=== PATIENT | male | born 1975 | race Caucasian/White ===

== ENCOUNTER 2016-09-25 07:36 | Emergency (ER) | payer OTHER ==
[2016-09-25 07:41] VITALS: BMI 20.1
--- NOTE | 2016-09-25 08:07 | DR.GENAD ---
HPI - PCP Primary Care Physician: NFD - Complaint/Symptoms Chief Complaint Doctors Comments: Headache Chief Complaint:: HEAD ABOUT TO EXPLODE ANCD BP HIGH WHEN CHECKED AT WORK Self Treatment fo Chief Complaint: NONE - Nurses notes reviewed Nurses Notes Review: Yes - Source History Provided: Patient - Mode of Arrival Mode of Arrival: Ambulatory - Timing Onset of Chief Complaint: 09/24/16 Came on: Gradually - Duration Duration: Intermittent How lon Duration: Weeks - Severity Severity: Severe - Associated Signs and Symptoms Associated Signs and Symptoms: nocturia, dizziness, fatigue , insomnia PMH - PMH Past Medical History: Yes Past Medical History: Anxiety Past Surgical History: No - Family History History of Family Medical Conditions: Yes Family Medical History: Diabetes Mellitus, Coronary Artery Disease, Hypertension - Social History Does patient currently use any type of tobacco product: Yes Have you used tobacco products in the last 12 months: Yes Type of Tobacco Use: Cigarettes How many years tobacco product used: 20 Does any household member use tobacco: No Alcohol Use: Occasionally Do you use any recreational Drugs:: No Lives With: Spouse, Family Lives Where: Home - infectious screening In the last 2 months have you had wt loss of >10#?: NO Have you had fever, night sweats or hemotysis?: No Have you traveled outside the country in the last 6 months?: No Isolation: Standard PE - Vital Signs Vitals: Temperature 98 F Pulse Rate [Left Brachial] 80 Pulse Rate 88 Respiratory Rate 18 Blood Pressure [Right Arm] 127/77 Blood Pressure 189/100 O2 Sat by Pulse Oximetry 100 - General Limitations: No Limitations General Appearance: Alert, In No Apparent Distress - Head Head Exam: Normal Inspection, Atraumatic - Eyes Eye exam: Normal Appearance, PERRL, EOMI - ENT ENT Exam: Normal Exam, Normal Oropharynx, Mucous Membranes Moist External Ear Exam: Normal External Inspection Nose Exam: Normal Nose Exam Mouth Exam: Normal Inspection Throat Exam: Normal Inspection - Neck Neck Exam: Normal Inspection - Chest Chest Inspection: Normal Inspection, Symmetric Chest Wall Rise - Respiratory Respiratory Exam: Normal Lung Sounds Bilat - Cardiovascular Cardiovascular Exam: Regular Rate, Normal Rhythm, Normal Heart Sounds - Abdominal Exam Abdominal Exam: Normal Inspection, Normal Bowel Sounds, Soft - Extremities Extremities Exam: Normal Inspection, Full ROM - Back Back Exam: Normal Inspection, Full ROM - Neurologic Neurological Exam: Alert, Oriented X3, CN II-XII Intact - Psychiatric Psychiatric Exam: Normal Affect, Normal Mood - Skin Skin Exam: Warm, Dry, Intact, Normal Color Course - Reevaluation 1st: Improved (Headache is 4-5 now and was 9/10 upon presentation.) ROR - Labs Reviewed Result Diagrams: 09/25/16 08:24 09/25/16 08:24 Laboratory: WBC 6.9 X10^3/uL (3.6-10.0) 09/25/16 08:24 RBC 4.81 X10^6/uL (4.7-6.0) 09/25/16 08:24 Hgb 15.3 g/dL (13.5-18.0) 09/25/16 08:24 Hct 43.4 % (42.0-54.0) 09/25/16 08:24 MCV 90.2 fL (80.0-100.0) 09/25/16 08:24 MCH 31.9 pg (27.0-34.0) 09/25/16 08:24 MCHC 35.3 g/dL (33.0-35.0) H 09/25/16 08:24 RDW 13.4 % (11.6-16.5) 09/25/16 08:24 Plt Count 191 X10^3/uL (150.0-450.0) 09/25/16 08:24 MPV 7.3 fL (7.4-11.0) L 09/25/16 08:24 Neut % 88.0 % (42.0-75.0) H 09/25/16 08:24 Lymph % 6.1 % (21.0-51.0) L 09/25/16 08:24 Curry % 5.1 % (0.0-13.0) 09/25/16 08:24 Eos % 0.4 % (0.9-2.9) L 09/25/16 08:24 Baso % 0.4 % (0.2-1.0) 09/25/16 08:24 Neut # 6.1 x10^3/uL (2.2-4.8) H 09/25/16 08:24 Lymph # 0.4 X10^3/uL (1.3-2.9) L 09/25/16 08:24 Curry # 0.4 x10^3/uL (0.3-0.8) 09/25/16 08:24 Eos # 0.0 x10^3/uL (0.0-0.2) 09/25/16 08:24 Baso # 0.0 X10^3/uL (0.0-0.1) 09/25/16 08:24 Absolute Nucleated RBC 0.0 /100WBC 09/25/16 08:24 Sodium 134 mmol/L (136-145) L 09/25/16 08:24 Corrected Sodium TNP 09/25/16 08:24 Potassium 3.8 mmol/L (3.5-5.1) 09/25/16 08:24 Chloride 98 mmol/L (98-107) 09/25/16 08:24 Carbon Dioxide 28.4 mmol/L (21-32) 09/25/16 08:24 BUN 8 mg/dL (7-18) 09/25/16 08:24 Creatinine 1.01 mg/dL (0.70-1.30) 09/25/16 08:24 Est GFR (MDRD) Af Amer > 60 (>60) 09/25/16 08:24 Est GFR (MDRD) Non-Af > 60 (>60) 09/25/16 08:24 Glucose 101 mg/dL (65-99) H 09/25/16 08:24 Calcium 8.9 mg/dL (8.5-10.1) 09/25/16 08:24 Corrected Calcium TNP 09/25/16 08:24 Total Bilirubin 0.80 mg/dL (0.2-1.0) 09/25/16 08:24 AST 27 Units/L (15-37) 09/25/16 08:24 ALT 28 Units/L (12-78) 09/25/16 08:24 Alkaline Phosphatase 68 Units/L (46-116) 09/25/16 08:24 Creatine Kinase 180 Units/L (39-308) 09/25/16 08:24 Troponin I < 0.02 ng/mL (0-1.5) 09/25/16 08:24 Total Protein 7.4 g/dL (6.4-8.2) 09/25/16 08:24 Albumin 4.0 g/dL (3.4-5.0) 09/25/16 08:24 Globulin 3.4 g/dL (2.5-4.5) 09/25/16 08:24 Albumin/Globulin Ratio 1.2 Ratio (1.1-2.1) 09/25/16 08:24 Specimen Type Clean catch urine 09/25/16 08:33 Urine Color Dark yellow (YELLOW) 09/25/16 08:33 Urine Appearance Clear (CLEAR) 09/25/16 08:33 Urine pH 6.0 (5.0 - 8.0) 09/25/16 08:33 Ur Specific [place] 1.015 (1.000-1.030) 09/25/16 08:33 Urine Protein 1+ (NEGATIVE) 09/25/16 08:33 Urine Glucose (UA) Negative (NEGATIVE) 09/25/16 08:33 Urine Ketones Negative (NEGATIVE) 09/25/16 08:33 Urine Occult Blood 1+ (NEGATIVE) 09/25/16 08:33 Urine Nitrite Negative (NEGATIVE) 09/25/16 08:33 Urine Bilirubin Negative (NEGATIVE) 09/25/16 08:33 Urine Urobilinogen 1+ (NORMAL) 09/25/16 08:33 Ur Leukocyte Esterase 1+ (NEGATIVE) 09/25/16 08:33 Urine RBC 2-5 /HPF (NEGATIVE) 09/25/16 08:33 Urine WBC Rare /HPF (NEGATIVE) 09/25/16 08:33 Ur Squamous Epith Cells Rare /HPF (NEGATIVE) 09/25/16 08:33 Amorphous Sediment 1+ /HPF (NEGATIVE) 09/25/16 08:33 Urine Bacteria Trace /HPF (NEGATIVE) 09/25/16 08:33 Urine Mucus Few /HPF (NEGATIVE) 09/25/16 08:33 Ur Culture Indicated? No/not indicated 09/25/16 08:33 - Diagnosis Discharge Problem: Hypertension, Headache - Discharge Plan Disposition: 01 HOME, SELF-CARE Condition: Stable - Follow ups/Referrals Follow ups/Referrals: NFD,None [Primary Care Provider] - 3 days - Instructions Instructions: Hypertension, [id number], Managing Your High Blood Pressure, Tobacco Use Disorder, Hypertension
[2016-09-25] MEDS ORDERED: CATAPRES TAB 0.2 MG PO ONE (08:08)
[2016-09-25] MEDS ORDERED: CATAPRES TAB 0.2 MG ONE (08:10)
[2016-09-25 08:35] LABS: BASOPHILS % (AUTO) 0.4 % (0.2-1.0); EOSINOPHILS % (AUTO) 0.4 % (0.9-2.9); HEMATOCRIT 43.4 % (42.0-54.0); HEMOGLOBIN 15.3 g/dL (13.5-18.0); LYMPHOCYTES # (AUTO) 0.4 X10^3/uL (1.3-2.9); LYMPHOCYTES % (AUTO) 6.1 % (21.0-51.0); MEAN CORPUSCULAR HEMOGLOBIN 31.9 pg (27.0-34.0); MEAN CORPUSCULAR HGB CONC 35.3 g/dL (33.0-35.0); MEAN CORPUSCULAR VOLUME 90.2 fL (80.0-100.0); MEAN PLATELET VOLUME 7.3 fL (7.4-11.0); MONOCYTES # (AUTO) 0.4 x10^3/uL (0.3-0.8); MONOCYTES % (AUTO) 5.1 % (0.0-13.0); NEUTROPHILS # (AUTO) 6.1 x10^3/uL (2.2-4.8); PLATELET COUNT 191 X10^3/uL (150.0-450.0); RED BLOOD COUNT 4.81 X10^6/uL (4.7-6.0); RED CELL DISTRIBUTION WIDTH 13.4 % (11.6-16.5); WHITE BLOOD COUNT 6.9 X10^3/uL (3.6-10.0)
[2016-09-25 08:47] LABS: ALANINE AMINOTRANSFERASE 28 Units/L (12-78); ALKALINE PHOSPHATASE 68 Units/L (46-116); ASPARTATE AMINO TRANSFERASE 27 Units/L (15-37); BLOOD UREA NITROGEN 8 mg/dL (7-18); CALCIUM 8.9 mg/dL (8.5-10.1); CARBON DIOXIDE 28.4 mmol/L (21-32); CHLORIDE 98 mmol/L (98-107); CREATININE 1.01 mg/dL (0.70-1.30); GLUCOSE 101 mg/dL (65-99); SODIUM 134 mmol/L (136-145); TOTAL PROTEIN 7.4 g/dL (6.4-8.2); eGFR BLACK RACES > 60 (>60); eGFR NON BLACK RACES > 60 (>60)
[2016-09-25 08:57] LABS: BILIRUBIN,URINE NEGATIVE (NEGATIVE); BLOOD/HEMOGLOBIN,URINE 1+ (NEGATIVE); GLUCOSE, URINE NEGATIVE (NEGATIVE); KETONES,URINE NEGATIVE (NEGATIVE); LEUKOCYTE ESTERASE ,URINE 1+ (NEGATIVE); NITRITES,URINE NEGATIVE (NEGATIVE); PROTEIN,URINE 1+ (NEGATIVE); UROBILINOGEN,URINE 1+ (NORMAL)
[2016-09-25 09:03] VITALS: BP 127/77
[2016-09-25 09:05] LABS: CREATINE KINASE 180 Units/L (39-308); TROPONIN I < 0.02 ng/mL (0-1.5)
[2016-09-25 09:07] LABS: APPEARANCE,URINE CLEAR (CLEAR); COLOR,URINE DARK YELLOW (YELLOW)
[2016-09-25 09:08] LABS: AMORPHOUS SEDIMENT,UR 1+ /HPF (NEGATIVE); BACTERIA,URINE TRACE /HPF (NEGATIVE); MUCUS,URINE FEW /HPF (NEGATIVE); SQUAMOUS EPITHELIAL CELL,UR RARE /HPF (NEGATIVE)
[2016-09-25 09:26] LABS: CKMB % 0.6 % (<4); CREATINE KINASE MB < 1.0 ng/mL (0-4.0)
[2016-09-25] MEDS ORDERED: CATAPRES TAB 0.1 MG ONE (09:33)
[2016-09-25] MEDS ORDERED: NS 1000 ML 1,000 ML ONE (09:50)
[2016-09-25] MEDS ORDERED: VANCOMYCIN HCL 1 GM VIAL ONE (09:50)
[2016-09-25] MEDS ORDERED: STERILE WATER IRRIGATION IR ONE (09:51)
[2016-09-25] MEDS ORDERED: NS 250 ML IV 250 ML IV ONE (09:51)
--- NOTE | 2016-09-25 10:08 | RAD ---
HISTORY: Chest pain and hypertension. Study: Two views chest. Comparison: 2014. Findings: The trachea is midline. The cardiac silhouette is unremarkable. The lungs are clear without focal infiltrate or effusion. The bony thorax is unremarkable. IMPRESSION: 1. No acute cardiopulmonary disease. Reported By:
== END 2016-09-25 09:30 | disposition home or self-care (01) ==
LOC: ER 07:45
DX: I10 Essential (primary) hypertension (principal); R51 Headache
CPT/HCPCS: 36415; 71020; 80053; 81001; 82550; 82553; 84484; 85025; 93005; 93010; 99282; 99283; A4217; A4222; J3370

== ENCOUNTER → 2017-01-16 | Outpatient (CLI) | payer OTHER ==
[2016-09-27 07:48] VITALS: BP 123/75
--- NOTE | 2017-01-16 17:05 | RAD ---
Two view chest series: Indication: Shortness breath. Comparison: Chest series dated September 27, 2016. Technique: Upright PA and lateral views of the chest provided. Findings/impression: Lung volumes are normal without acute cardiopulmonary abnormality. Cardiac silho uette is within normal limits. The osseous thorax is unremarkable. Reported By:
== END ==
LOC: RAD 16:27
PROVIDERS: ATTEND Nurse Practitioner Family
DX: R06.09 Other forms of dyspnea (principal)
CPT/HCPCS: 71020

== ENCOUNTER 2017-01-20 13:09 | Inpatient (IN) | payer OTHER ==
[2017-01-20] MEDS ORDERED: TUSSIONEX PENNKINETIC SUSP PO PRN (13:22)
[2017-01-20] MEDS ORDERED: SALINE 3% 15 ML NEB TX ONE (13:28)
[2017-01-20] MEDS ORDERED: NS 1/2 1000 ML IV 1,000 ML IV ONE (13:34)
[2017-01-20 14:01] LABS: BASOPHILS # (AUTO) 0.1 X10^3/uL (0.0-0.1); EOSINOPHILS # (AUTO) 0.5 x10^3/uL (0.0-0.2); EOSINOPHILS % (AUTO) 4.7 % (0.9-2.9); HEMATOCRIT 40.3 % (42.0-54.0); HEMOGLOBIN 14.3 g/dL (13.5-18.0); LYMPHOCYTES # (AUTO) 1.5 X10^3/uL (1.3-2.9); LYMPHOCYTES % (AUTO) 13.9 % (21.0-51.0); MEAN CORPUSCULAR HEMOGLOBIN 31.9 pg (27.0-34.0); MEAN CORPUSCULAR HGB CONC 35.4 g/dL (33.0-35.0); MEAN CORPUSCULAR VOLUME 90.2 fL (80.0-100.0); MEAN PLATELET VOLUME 7.6 fL (7.4-11.0); MONOCYTES # (AUTO) 0.8 x10^3/uL (0.3-0.8); MONOCYTES % (AUTO) 7.5 % (0.0-13.0); NEUTROPHILS # (AUTO) 7.7 x10^3/uL (2.2-4.8); NEUTROPHILS % (AUTO) 72.9 % (42.0-75.0); PLATELET COUNT 278 X10^3/uL (150.0-450.0); RED BLOOD COUNT 4.47 X10^6/uL (4.7-6.0); WHITE BLOOD COUNT 10.5 X10^3/uL (3.6-10.0)
[2017-01-20] MEDS: NS 1/2 1000 ML IV 1,000 ML IV SCH (14:03)
[2017-01-20] MEDS: ZOSYN VIAL 4.5 GM 4.5 GM in NS 100 ML IV + SPIKE MINIBAG* 100 ML IV SCH ×2 (14:04→21:24)
[2017-01-20 14:09] LABS: BLOOD UREA NITROGEN 11 mg/dL (7-18); CALCIUM 9.5 mg/dL (8.5-10.1); CARBON DIOXIDE 29.4 mmol/L (21-32); CHLORIDE 101 mmol/L (98-107); CREATININE 1.13 mg/dL (0.70-1.30); SODIUM 139 mmol/L (136-145); eGFR BLACK RACES > 60 (>60); eGFR NON BLACK RACES > 60 (>60)
[2017-01-20 14:18] VITALS: BMI 20.8
[2017-01-20 14:36] LABS: ALANINE AMINOTRANSFERASE 27 Units/L (12-78); ALBUMIN 4.2 g/dL (3.4-5.0); ALKALINE PHOSPHATASE 88 Units/L (46-116); ASPARTATE AMINO TRANSFERASE 29 Units/L (15-37); TOTAL PROTEIN 7.3 g/dL (6.4-8.2)
--- NOTE | 2017-01-20 14:57 | RAD ---
HISTORY: Chest pain, shortness of breath Study: Chest PA and lateral Comparison: 01/16/2017 Findings: The heart is within normal limits in size. The scooter are normal. The lungs are hyperinflated but free of acute alveolar infiltrates. Mild interstitial lung changes are present. No pleural effusions are i dentified. The bony thorax is unremarkable. IMPRESSION: Lungs hyperinflated but free of acute alveolar infiltrates. Minimal interstitial lung changes, chronic Reported By:
[2017-01-20 16:46] LABS: MAGNESIUM 1.9 mg/dL (1.7-2.9)
[2017-01-20] MEDS: ROBITUSSIN DM PO SCH ×2 (16:49→21:23)
[2017-01-20] MEDS: DUONEB 0.5 MG/3 MG NEB SCH ×2 (16:52→20:26)
[2017-01-21] MEDS: DUONEB 0.5 MG/3 MG NEB SCH ×6 (00:52→20:49)
[2017-01-21] MEDS: NS 1/2 1000 ML IV 1,000 ML IV SCH ×2 (04:25→18:10)
[2017-01-21 04:58] LABS: BASOPHILS # (AUTO) 0.1 X10^3/uL (0.0-0.1); BASOPHILS % (AUTO) 0.8 % (0.2-1.0); EOSINOPHILS # (AUTO) 0.2 x10^3/uL (0.0-0.2); EOSINOPHILS % (AUTO) 3.4 % (0.9-2.9); HEMATOCRIT 37.7 % (42.0-54.0); HEMOGLOBIN 12.9 g/dL (13.5-18.0); LYMPHOCYTES # (AUTO) 1.1 X10^3/uL (1.3-2.9); LYMPHOCYTES % (AUTO) 16.2 % (21.0-51.0); MEAN CORPUSCULAR HGB CONC 34.2 g/dL (33.0-35.0); MEAN CORPUSCULAR VOLUME 90.5 fL (80.0-100.0); MEAN PLATELET VOLUME 7.8 fL (7.4-11.0); MONOCYTES # (AUTO) 0.6 x10^3/uL (0.3-0.8); MONOCYTES % (AUTO) 9.7 % (0.0-13.0); NEUTROPHILS # (AUTO) 4.5 x10^3/uL (2.2-4.8); NEUTROPHILS % (AUTO) 69.9 % (42.0-75.0); PLATELET COUNT 225 X10^3/uL (150.0-450.0); RED BLOOD COUNT 4.17 X10^6/uL (4.7-6.0); WHITE BLOOD COUNT 6.5 X10^3/uL (3.6-10.0)
[2017-01-21] MEDS: ZOSYN VIAL 4.5 GM 4.5 GM in NS 100 ML IV + SPIKE MINIBAG* 100 ML IV SCH ×3 (05:47→21:11)
[2017-01-21 06:42] LABS: ALANINE AMINOTRANSFERASE 21 Units/L (12-78); ALBUMIN 3.6 g/dL (3.4-5.0); ALKALINE PHOSPHATASE 73 Units/L (46-116); ASPARTATE AMINO TRANSFERASE 20 Units/L (15-37); BLOOD UREA NITROGEN 7 mg/dL (7-18); CALCIUM 9.2 mg/dL (8.5-10.1); CARBON DIOXIDE 25.3 mmol/L (21-32); CHLORIDE 106 mmol/L (98-107); CREATININE 0.97 mg/dL (0.70-1.30); SODIUM 141 mmol/L (136-145); TOTAL PROTEIN 6.3 g/dL (6.4-8.2); eGFR BLACK RACES > 60 (>60); eGFR NON BLACK RACES > 60 (>60)
[2017-01-21] MEDS: LEVAQUIN PREMIX IV 750 MG 750 MG/150 ML BAG IV SCH (09:25)
[2017-01-21] MEDS: ROBITUSSIN DM PO SCH ×4 (09:25→21:11)
[2017-01-21] MEDS ORDERED: TORADOL 15 MG VIAL IVP PRN (13:36)
--- NOTE | 2017-01-21 14:17 | CT ---
Indication: Shortness of breath . Exam: CT chest with contrast. Technique: Axial spiral images were obtained from the level above the clavicles through the adrenals after administration IV contrast. Coronal and sagittal multiplanar reconstructions were performed. Findings: The thyroid gland is unremarkable. The aorta and pulmonary arteries are well opacified with mild dilatation of the ascending aorta measuring up to 3.3 cm . There is no dissection. There are no filling defects in the pulmonary arteries. There are small lymph nodes scattered in the AP window an d pretracheal region measuring up to 7 mm. There is an 8 mm subcarinal lymph node. There are tiny ple ural effusions along the lung bases which is more prominent on the right with associated mild right b asilar subsegmental atelectasis or early infiltrates posteriorly which is more prominent on the right . The adrenals are normal. The visualized upper abdomen is unremarkable. The lungs are mildly hyperin flated and emphysematous with mild pleural thickening and linear scarring along the apices. No pulmon silvino nodule or mass is seen. The bones are intact. Impression: Tiny bibasilar pleural effusions and associated mild subsegmental atelectasis or early infiltrates po steriorly which is more prominent on the right, suggest follow-up with chest x-rays . COPD with no pulmonary nodule or mass. Mild aneurysmal dilatation of the ascending aorta, suggest follow-up to assure stability Small lymph nodes scattered in the mediastinum which are not pathologic by size criteria. Reported By:
[2017-01-21] MEDS: SOLU-Medrol 125 MG VIAL IVP SCH ×2 (15:49→21:09)
[2017-01-21] MEDS: PEPCID 20 MG IV PREMIX* 20 MG/50 ML BAG IV SCH ×2 (15:52→21:11)
--- NOTE | 2017-01-21 17:58 | DR.H&P ---
H&P - History & Physical for Day of: H&P Date: 01/20/17 - Chief Complaint Chief Complaint: SOB, PAINFUL RESPIRATIONS - Allergies Allergies/Adverse Reactions: Allergies Allergy/AdvReac Type Severity Reaction Status Date / Time No Known Drug Allergies Allergy Verified 09/25/16 08:34 - History of Present Illness History of Present Illness: PATIENT IS A 41-YEAR-OLD WHITE MALE WHO WAS A DIRECT ADMIT FROM dR. Carreon'S OFFICE AFTER FAILING TO IMPROVE WITH OUTPATIENT THERAPY FOR WHAT APPEARED TO BE ACUTE BRONCHITIS. pATIENT WAS PREVIOUSLY TREATED WITH im ANTIBIOTIC INJECTION WELL im STEROIDS. pATIENT WAS STARTED ON BY MOUTH zITHROMAX.. pATIENT CONTINUED TO COMPLAIN OF PLEURITIC PAIN WELL WEAKNESS AND FATIGUE. pATIENT HAD A CHEST X-RAY ON OUTPATIENT BASIS. tHE PATIENT HAS PAST MEDICAL HISTORY OF HYPERTENSION AND ANXIETY. pLAN TO ADMIT FOR FURTHER EVALUATION OF RESPIRATORY ILLNESS. pLAN TO OBTAIN ADMISSION LABS SPUTUM AND BLOOD CULTURES, ADMINISTER iv ANTIBIOTICS WELL RESPIRATORY CARE. - Past Medical History Past Medical History: Anxiety, Hypertension - Family History Family Medical History: Diabetes Mellitus, [place], Sudden Cardiac , Hypertension - Social History Does patient currently use any type of tobacco product: Yes Have you used tobacco products in the last 12 months: Yes Type of Tobacco Use: Cigarettes How many years tobacco product used: 24 Packs per day or dips/chews per day: 1 Alcohol Use: DAILY Drug Use: None - Medications Home Medications: Amlodipine Besylate [NORVASC 5 MG *] 5 mg PO DAILY 01/20/17 [History Confirmed 01/20/17] Paroxetine HCl [Paxil] 10 mg PO DAILY 01/20/17 [History Confirmed 01/20/17] - Review of Systems Constitutional: Fever, Chills, Malaise Eyes: No Symptoms Reported ENT: No Symptoms Reported Respiratory: Pleuritic Pain, Sputum, Wheezing Cardiovascular: No Symptoms Reported Gastrointestinal: Nausea Genitourinary: No Symptoms Reported Musculoskeletal: No Symptoms Reported Skin: No Symptoms Reported Neurological: No Symptoms Reported - Physical Exam Vital Signs: Temperature 97.4 F Pulse Rate [Left Brachial] 82 Pulse Rate 63 Respiratory Rate 18 Blood Pressure [Left Arm] 111/69 Blood Pressure [Right Arm] 126/69 Blood Pressure 123/75 O2 Sat by Pulse Oximetry 96 Oriented: Normal Eyes: Normal Ear: Normal Nose: Normal Throat: Normal Respiratory: Rhonchi Throughout (MILD UPPER EXP WHEEZES ADN CENTRAL RHONCHI), RLL Diminished, LLL Diminished Cardiovascular: Normal : Normal Auscultation: Bowel Sounds: Normal Palpation: Normal Tenderness: Normal Skin: Normal Musculoskeletal: Normal Psychiatric: Anxiety Affect: Anxious Speech Pattern: Clear, Appropriate - Assessment/Plan (1) Acute bronchitis Status: Acute Plan: admit, admission labs including blood cultures and sputum cultures. Respiratory care, and d-dimer on admission, chest x-ray report on patient's chart. Administer IV antibiotics, IV steroids, anti-tussive medication, supplemental O2, respiratory jet nebs. (2) Pleurisy without effusion Status: Acute (3) Hypertension Status: Acute
[2017-01-21] MEDS ORDERED: NS 1/2 1000 ML IV 1,000 ML IV ONE (20:35)
[2017-01-22] MEDS: DUONEB 0.5 MG/3 MG NEB SCH ×4 (01:08→13:28)
[2017-01-22] MEDS: SOLU-Medrol 125 MG VIAL IVP SCH (06:04)
[2017-01-22] MEDS: ZOSYN VIAL 4.5 GM 4.5 GM in NS 100 ML IV + SPIKE MINIBAG* 100 ML IV SCH (06:05)
[2017-01-22 06:07] LABS: BASOPHILS % (AUTO) 0.3 % (0.2-1.0); HEMATOCRIT 38.5 % (42.0-54.0); HEMOGLOBIN 13.4 g/dL (13.5-18.0); LYMPHOCYTES # (AUTO) 0.4 X10^3/uL (1.3-2.9); LYMPHOCYTES % (AUTO) 4.4 % (21.0-51.0); MEAN CORPUSCULAR HEMOGLOBIN 31.7 pg (27.0-34.0); MEAN CORPUSCULAR HGB CONC 34.8 g/dL (33.0-35.0); MEAN CORPUSCULAR VOLUME 91.2 fL (80.0-100.0); MEAN PLATELET VOLUME 8.1 fL (7.4-11.0); MONOCYTES # (AUTO) 0.1 x10^3/uL (0.3-0.8); MONOCYTES % (AUTO) 1.3 % (0.0-13.0); PLATELET COUNT 238 X10^3/uL (150.0-450.0); RED BLOOD COUNT 4.22 X10^6/uL (4.7-6.0); RED CELL DISTRIBUTION WIDTH 12.9 % (11.6-16.5); WHITE BLOOD COUNT 9.6 X10^3/uL (3.6-10.0)
[2017-01-22 06:43] LABS: ALANINE AMINOTRANSFERASE 19 Units/L (12-78); ALBUMIN 3.4 g/dL (3.4-5.0); ALKALINE PHOSPHATASE 70 Units/L (46-116); ASPARTATE AMINO TRANSFERASE 16 Units/L (15-37); BLOOD UREA NITROGEN 9 mg/dL (7-18); CALCIUM 9.3 mg/dL (8.5-10.1); CARBON DIOXIDE 22.1 mmol/L (21-32); CHLORIDE 103 mmol/L (98-107); COR NA(FOR HYPERGLY) 141 mmol/L (136-145); CREATININE 1.08 mg/dL (0.70-1.30); SODIUM 140 mmol/L (136-145); TOTAL PROTEIN 6.8 g/dL (6.4-8.2); eGFR BLACK RACES > 60 (>60); eGFR NON BLACK RACES > 60 (>60)
[2017-01-22 06:49] LABS: BAND NEUTROPHILS % 3 % (0-10); PLATELET MORPHOLOGY COMMENT NORMAL (NORMAL)
[2017-01-22] MEDS: LEVAQUIN PREMIX IV 750 MG 750 MG/150 ML BAG IV SCH (08:59)
[2017-01-22] MEDS ORDERED: NORVASC TAB 5 MG PO SCH (09:00)
[2017-01-22] MEDS: PEPCID 20 MG IV PREMIX* 20 MG/50 ML BAG IV SCH (09:00)
[2017-01-22] MEDS ORDERED: PAROXETINE HCL 10 MG PO SCH (09:00)
[2017-01-22] MEDS ORDERED: PAXIL PO SCH (09:00)
[2017-01-22] MEDS: ROBITUSSIN DM PO SCH (09:02)
[2017-01-22 13:05] VITALS: BP 126/73
== END 2017-01-22 14:12 | disposition home or self-care (01) | DRG 203 ==
LOC: MED/SURG 13:09
PROVIDERS: ADMIT Internal Medicine; ATTEND Internal Medicine
DX: J20.8 Acute bronchitis due to other specified organisms (principal); R06.02 Shortness of breath; I10 Essential (primary) hypertension; F41.8 Other specified anxiety disorders; R79.1 Abnormal coagulation profile; R09.1 Pleurisy
CPT/HCPCS: 36415; 71020; 71260; 80053; 83735; 85025; 85378; 87040; 94640; 94760; A4222; S0028; J1956; J2543; J2930; J7620

== ENCOUNTER 2018-05-13 17:02 | Observation (INO) ==
[2018-05-13] MEDS ORDERED: NS 1000 ML 1,000 ML IV ONE (17:42)
[2018-05-13] MEDS ORDERED: NS 1000 ML 2,000 ML ONE (17:44)
[2018-05-13] MEDS: NORVASC TAB 5 MG PO SCH (17:53)
[2018-05-13] MEDS: NS 1000 ML 1,000 ML IV SCH (17:55)
[2018-05-13] MEDS ORDERED: NICOTINE PATCH TD ONE (17:56)
[2018-05-13 17:58] VITALS: BMI 21.7
[2018-05-13] MEDS: NICOTINE PATCH TD SCH (18:00)
[2018-05-13 18:14] LABS: BASOPHILS # (AUTO) 0.1 X10^3/uL (0.0-0.1); BASOPHILS % (AUTO) 0.8 % (0.2-1.0); EOSINOPHILS # (AUTO) 0.3 x10^3/uL (0.0-0.2); HEMATOCRIT 41.1 % (42.0-54.0); HEMOGLOBIN 14.2 g/dL (13.5-18.0); LYMPHOCYTES # (AUTO) 1.6 X10^3/uL (1.3-2.9); LYMPHOCYTES % (AUTO) 22.1 % (21.0-51.0); MEAN CORPUSCULAR HEMOGLOBIN 31.8 pg (27.0-34.0); MEAN CORPUSCULAR HGB CONC 34.6 g/dL (33.0-35.0); MEAN CORPUSCULAR VOLUME 91.7 fL (80.0-100.0); MEAN PLATELET VOLUME 7.5 fL (7.4-11.0); MONOCYTES # (AUTO) 0.7 x10^3/uL (0.3-0.8); MONOCYTES % (AUTO) 8.9 % (0.0-13.0); NEUTROPHILS # (AUTO) 4.7 x10^3/uL (2.2-4.8); NEUTROPHILS % (AUTO) 64.2 % (42.0-75.0); PLATELET COUNT 249 X10^3/uL (150.0-450.0); RED BLOOD COUNT 4.48 X10^6/uL (4.7-6.0); RED CELL DISTRIBUTION WIDTH 13.1 % (11.6-16.5); WHITE BLOOD COUNT 7.4 X10^3/uL (3.6-10.0)
[2018-05-13 18:40] LABS: BLOOD UREA NITROGEN 11 mg/dL (7-18); CALCIUM 9.1 mg/dL (8.5-10.1); CARBON DIOXIDE 27.3 mmol/L (21-32); CHLORIDE 101 mmol/L (98-107); CREATININE 1.06 mg/dL (0.70-1.30); SODIUM 140 mmol/L (136-145); TROPONIN I < 0.02 ng/mL (0-1.5); eGFR NON BLACK RACES > 60 (>60)
[2018-05-13 18:44] LABS: ALANINE AMINOTRANSFERASE 25 Units/L (12-78); ALBUMIN 4.1 g/dL (3.4-5.0); ALKALINE PHOSPHATASE 74 Units/L (46-116); ASPARTATE AMINO TRANSFERASE 21 Units/L (15-37); CKMB % 0.8 % (<4); CREATINE KINASE 163 Units/L (39-308); CREATINE KINASE MB 1.3 ng/mL (0-4.0); MAGNESIUM 1.8 mg/dL (1.7-2.9); TOTAL PROTEIN 7.3 g/dL (6.4-8.2)
--- NOTE | 2018-05-13 18:56 | DR.H&P ---
H&P - History & Physical for Day of: H&P Date: 05/13/18 - Chief Complaint Chief Complaint: MUSCLE ACHES ALL OVER, N/V/D THIS PAST WEEKEND, ELEVATED BLOOD PRESSURE AND DECREASED URINE OUTPUT - History of Present Illness History of Present Illness: 42 WM DIRECT ADMIT FROM DR WEIR OFFICE WITH CO N/V/D OVER THE WEEKEND FOLLOWED BY MUSCLE CRAMPS AND ACHES ALL OVER AND DECREASED URINE OUTPT DESPITE INCREASED PO HYDRATION. PT HAD PMH OF HTN AND HAS BEEN TAKING RX NORVASC WITH CONTINUED ELEVATED BLOOD PRESSURE, 170'S/90'S IN OFFICE, PT STATES HAS BEEN HIGHER. PT CO LEFT SHOULDER AND LEFT ARM PAIN SINCE THURSDAY. PT ADMITTED FOR TREATMENT OF DEHYDRATION, RHABDOMYOLYSIS. - Past Medical History Past Medical History: Anxiety, Hypertension - Family History Family Medical History: Diabetes Mellitus, [place], Sudden Cardiac , Hypertension - Social History Does patient currently use any type of tobacco product: Yes Have you used tobacco products in the last 12 months: Yes Type of Tobacco Use: Cigarettes Does any household member use tobacco: Yes Alcohol Use: DAILY - Medications Home Medications: No Known Drug Allergies Allergy (Verified 09/25/16 08:34) - Review of Systems Constitutional: Weakness, Malaise Eyes: No Symptoms Reported ENT: No Symptoms Reported Respiratory: No Symptoms Reported Cardiovascular: No Symptoms Reported Gastrointestinal: Nausea, Vomiting, Abdominal Pain Genitourinary: Retention Musculoskeletal: Shoulder Pain, Arm Pain Skin: No Symptoms Reported Neurological: Weakness - Physical Exam Vital Signs: Temperature 97.9 F Pulse Rate [Left Radial] 79 Respiratory Rate 20 Blood Pressure [Left Arm] 197/94 Blood Pressure [Right Arm] 126/73 Blood Pressure 126/73 O2 Sat by Pulse Oximetry 95 Oriented: Normal Eyes: Normal Ear: Normal Nose: Normal Throat: Normal Respiratory: RLL Diminished, LLL Diminished Cardiovascular: Normal. negative: Edema : Normal Auscultation: Bowel Sounds: Normal Palpation: Normal Tenderness: Normal Skin: Decreased Turgur Psychiatric: Normal Mood Description: Calm Speech Pattern: Clear, Appropriate - Assessment/Plan (1) Rhabdomyolysis Status: Acute Plan: ADMIT, CE, EKG AND CE ON ADMISSION. GENTLE IV HYDRATION WITH STRICT I & O. BP CONTROL, LEFT SHOULDER XRAY, C SPINE XRAY. CBC CMP MAG AND UA ON ADMISSION (2) Left arm pain Status: Acute (3) Hypertension Status: Acute (4) Dehydration with hyponatremia Status: Acute (5) COPD (chronic obstructive pulmonary disease) Status: Acute - Allergies Allergies/Adverse Reactions: Allergies Allergy/AdvReac Type Severity Reaction Status Date / Time No Known Drug Allergies Allergy Verified 09/25/16 08:34
--- NOTE | 2018-05-13 22:37 | RAD ---
Chest AP portable Indication: Hypertension Comparison: 01/20/2017 Findings: There is no pneumothorax, but the lung apexes are excluded. No dense consolidation seen. Hyperinflation is noted. Heart size is normal. Mild increased pulmonary vascular markings noted. Impression: COPD change suggested, with background of mild bronchitis. Follow-up with PA and lateral chest. Study is limited due to field of view issues. Reported By:
[2018-05-13 22:56] LABS: STOOL FOR WBC NEGATIVE (NEGATIVE)
--- NOTE | 2018-05-13 23:02 | RAD ---
Cervical spine three views Indication: Acute left shoulder pain. No neck injury. Findings: Prevertebral soft tissues are normal. Craniocervical junction and cervicothoracic junctions are intact. No cortical lucency or malalignment seen Impression: No acute cervical spine abnormality seen radiographically Reported By:
--- NOTE | 2018-05-13 23:02 | RAD ---
Left shoulder two views Indication: Left shoulder pain. Comparison: No recent similar priors Findings: Acromioclavicular and glenohumeral joints are intact Impression: No acute left shoulder fracture. Reported By:
[2018-05-14] MEDS: NS 1000 ML 1,000 ML IV SCH ×2 (01:58→09:59)
[2018-05-14 04:32] LABS: BILIRUBIN,URINE NEGATIVE (NEGATIVE); BLOOD/HEMOGLOBIN,URINE NEGATIVE (NEGATIVE); GLUCOSE, URINE NEGATIVE (NEGATIVE); KETONES,URINE NEGATIVE (NEGATIVE); LEUKOCYTE ESTERASE ,URINE 1+ (NEGATIVE); NITRITES,URINE NEGATIVE (NEGATIVE); PROTEIN,URINE 1+ (NEGATIVE); UROBILINOGEN,URINE NORMAL (NORMAL)
[2018-05-14 04:42] LABS: APPEARANCE,URINE CLEAR (CLEAR); BACTERIA,URINE NEGATIVE /HPF (NEGATIVE); COLOR,URINE YELLOW (YELLOW); RBC,URINE NONE SEEN /HPF (NONE SEEN); SQUAMOUS EPITHELIAL CELL,UR RARE /HPF (NEGATIVE)
[2018-05-14 06:20] LABS: BASOPHILS # (AUTO) 0.1 X10^3/uL (0.0-0.1); BASOPHILS % (AUTO) 1.3 % (0.2-1.0); EOSINOPHILS # (AUTO) 0.2 x10^3/uL (0.0-0.2); HEMATOCRIT 38.3 % (42.0-54.0); HEMOGLOBIN 13.3 g/dL (13.5-18.0); LYMPHOCYTES # (AUTO) 1.3 X10^3/uL (1.3-2.9); LYMPHOCYTES % (AUTO) 23.2 % (21.0-51.0); MEAN CORPUSCULAR HEMOGLOBIN 31.6 pg (27.0-34.0); MEAN CORPUSCULAR HGB CONC 34.6 g/dL (33.0-35.0); MEAN CORPUSCULAR VOLUME 91.4 fL (80.0-100.0); MEAN PLATELET VOLUME 8.3 fL (7.4-11.0); MONOCYTES # (AUTO) 0.6 x10^3/uL (0.3-0.8); MONOCYTES % (AUTO) 10.9 % (0.0-13.0); NEUTROPHILS # (AUTO) 3.5 x10^3/uL (2.2-4.8); NEUTROPHILS % (AUTO) 60.6 % (42.0-75.0); PLATELET COUNT 204 X10^3/uL (150.0-450.0); RED BLOOD COUNT 4.19 X10^6/uL (4.7-6.0); RED CELL DISTRIBUTION WIDTH 13.2 % (11.6-16.5); WHITE BLOOD COUNT 5.7 X10^3/uL (3.6-10.0)
[2018-05-14 06:49] LABS: ALANINE AMINOTRANSFERASE 20 Units/L (12-78); ALBUMIN 3.1 g/dL (3.4-5.0); ALKALINE PHOSPHATASE 58 Units/L (46-116); ASPARTATE AMINO TRANSFERASE 20 Units/L (15-37); BLOOD UREA NITROGEN 9 mg/dL (7-18); CALCIUM 8.4 mg/dL (8.5-10.1); CARBON DIOXIDE 25.4 mmol/L (21-32); CHLORIDE 106 mmol/L (98-107); CKMB % 0.9 % (<4); COR CA(FOR HYPOALB) 9.1 mg/dL (8.5-10.1); CREATINE KINASE 118 Units/L (39-308); CREATINE KINASE MB < 1.0 ng/mL (0-4.0); CREATININE 0.95 mg/dL (0.70-1.30); MAGNESIUM 1.8 mg/dL (1.7-2.9); SODIUM 141 mmol/L (136-145); TOTAL PROTEIN 5.7 g/dL (6.4-8.2); TROPONIN I < 0.02 ng/mL (0-1.5); eGFR NON BLACK RACES > 60 (>60)
[2018-05-14] MEDS: NICOTINE PATCH TD SCH (08:12)
[2018-05-14] MEDS: NORVASC TAB 5 MG PO SCH (08:12)
[2018-05-14] MEDS ORDERED: ZITHROMAX INJ 500 MG VIAL 500 MG in NS 250 ML IV 250 ML IV SCH (09:00)
[2018-05-14] MEDS ORDERED: TUSSIONEX PENNKINETIC SUSP PO ONE (10:37)
[2018-05-14 12:40] VITALS: BP 125/76
== END 2018-05-14 12:40 | disposition home or self-care (01) ==
LOC: MED/SURG
PROVIDERS: ADMIT Internal Medicine; ATTEND Internal Medicine
DX: E87.1 Hypo-osmolality and hyponatremia; M79.602 Pain in left arm; I10 Essential (primary) hypertension; R11.2 Nausea with vomiting, unspecified; M62.82 Rhabdomyolysis; E86.0 Dehydration; J20.8 Acute bronchitis due to other specified organisms; R19.7 Diarrhea, unspecified; J44.9 Chronic obstructive pulmonary disease, unspecified; Z66 Do not resuscitate; M25.512 Pain in left shoulder
CPT/HCPCS: 36415; 71010; 71045; 72040; 73030; 80053; 81001; 82270; 82550; 82553; 83630; 83735; 84484; 85025; 87045; 87427; 87449; 87493; 87899; 96367; 96374; A4222; G0378; J0456; J7030; J7050